=== PATIENT | male | born 1950 | race Caucasian/White ===

== ENCOUNTER 2016-11-17 09:59 | Observation (INO) | payer BC, OTHER ==
[2016-11-16 09:55] LABS: ASPARTATE AMINO TRANSFERASE 10 U/L (15-37); BLOOD UREA NITROGEN 19 mg/dL (7-18)
[~2016-11-17] VITALS: Ht 185.4 cm; Wt 113.6 kg
[~2016-11-17 09:59] MED LIST: AMIO100T4 PO; APIX5TAB PO; COLC0.6T37 PO; DULA1.5P SC; FINA5TAB4 PO; LEVO1CAP3 PO; METF500T27 PO; TAMS0.4C2 PO
[2016-11-17] MEDS ORDERED: SODIUM CHLORIDE 0.9% 1,000 ML IV SCH (10:15)
[2016-11-17 10:44] VITALS: BP 148/79
[2016-11-17] MEDS ORDERED: BUPIVACAINE 0.25% ONE (10:58)
[2016-11-17] MEDS ORDERED: HEPARIN 1,000 UNITS/ML, 10ML ONE (10:58)
[2016-11-17] MEDS ORDERED: FENTANYL PF 250 MCG/5ML ONE (11:19)
[2016-11-17] MEDS ORDERED: MIDAZOLAM 1 MG/ML, 5ML ONE (11:20)
[2016-11-17] MEDS ORDERED: SUCCINYLCHOLINE 20 MG/ML, 10ML ONE (12:02)
[2016-11-17] MEDS ORDERED: PROPOFOL 10 MG/ML, 20ML ONE (12:02)
[2016-11-17] MEDS ORDERED: DEXAMETHASONE 4 MG/ML, 1ML ONE (12:02)
[2016-11-17] MEDS ORDERED: ONDANSETRON 2MG/ML, 2ML ONE (12:02)
[2016-11-17] MEDS ORDERED: TEMPLATE NON-FORMULARY MED. (Dulaglutide (Trulicity) 0.5 ML) SC SCH (13:30)
[2016-11-17] MEDS ORDERED: ZOLPIDEM 5MG TABLET PO PRN (13:30)
[2016-11-17] MEDS ORDERED: ACETAMINOPHEN 650 MG/20.3 ML UDC ONE (14:18)
[2016-11-17] MEDS ORDERED: OXYcodone 5 MG/5 ML ORAL.SOL UDC ONE (14:18)
[2016-11-17] MEDS: ACETAMINOPHEN 325 MG TABLET PO PRN ×2 (14:23→23:07)
[2016-11-17] MEDS ORDERED: MIDAZOLAM 1 MG/ML, 2ML IV PRN (14:30)
[2016-11-17] MEDS ORDERED: HYDROmorphone 1 MG/ML, 1ML IV PRN (14:30)
[2016-11-17] MEDS ORDERED: OXYcodone 5 MG/5 ML ORAL.SOL UDC PO PRN (14:30)
[2016-11-17] MEDS ORDERED: ONDANSETRON 2MG/ML, 2ML IVPush PRN (14:30)
[2016-11-17] MEDS ORDERED: PROMETHAZINE 25 MG/ML, 1ML IV PRN (14:30)
[2016-11-17] MEDS ORDERED: FENTANYL PF 100 MCG/2ML ONE (14:42)
[2016-11-17] MEDS: FENTANYL PF 100 MCG/2ML IV PRN ×4 (14:44→15:03)
[2016-11-17 15:10] VITALS: BP 145/101
[2016-11-17 16:02] VITALS: BP 155/100
[2016-11-17] MEDS: TEMPLATE NON-FORMULARY MED. (Metformin Hcl** (Metformin Hcl Er**) 500 MG) HOMEMEDPO SCH (16:02)
[2016-11-17 17:00] VITALS: BP 148/93
[2016-11-17 18:00] VITALS: BP 137/82
[2016-11-17 19:51] VITALS: BP 133/83
[2016-11-17] MEDS: APIXABAN 5 MG TABLET PO SCH (19:58)
[2016-11-18 02:00] VITALS: BP 124/83
[2016-11-18 08:33] VITALS: BP 132/87
[2016-11-18] MEDS ORDERED: TEMPLATE NON-FORMULARY MED. (Levomefolate/B6/B12/Algal Oil** (Metanx Capsule**) 1 TAB) PO SCH (09:00)
[2016-11-18] MEDS ORDERED: FINASTERIDE 5 MG TABLET PO SCH (09:00)
[2016-11-18] MEDS ORDERED: TAMSULOSIN 0.4 MG CAP.ER.24H PO SCH (09:00)
[2016-11-18] MEDS ORDERED: AMIODARONE 200 MG TABLET PO SCH (09:00)
[2016-11-18] MEDS: TEMPLATE NON-FORMULARY MED. (Metformin Hcl** (Metformin Hcl Er**) 500 MG) HOMEMEDPO SCH (09:01)
[2016-11-18] MEDS: APIXABAN 5 MG TABLET PO SCH (09:01)
== END 2016-11-18 12:33 | disposition home or self-care (01) ==
LOC: CACL 09:59 → ORIP 13:31 → 5SO 15:25
PROVIDERS: ADMIT Internal Medicine Cardiovascular Disease; ATTEND Internal Medicine Cardiovascular Disease
DX: I48.91 Unspecified atrial fibrillation (principal); I48.92 Unspecified atrial flutter; I42.9 Cardiomyopathy, unspecified; E11.9 Type 2 diabetes mellitus without complications
CPT/HCPCS: 36415; 71020; 80053; 85025; 85347; 85610; 85730; 93005; 93308; 93321; 93325; 93613; 93655; 93656; 93662; C1730; C1731; C1732; C1759; C1766; C1893; C1894; G0378; J0330; J1100; J1644; J2250; J2405; J2704; J3010; J3490